=== PATIENT | female | born 1980 | race Asian ===

== ENCOUNTER → 2024-05-17 19:21 | Outpatient (REF) | payer BC, SELFPAY | LOC: WDC 19:21 | PROVIDERS: ATTENDING PHYSICIAN Nurse Practitioner Obstetrics & Gynecology; FAMILY PHYSICIAN Family Medicine | DX: Z12.31 Encounter for screening mammogram for malignant neoplasm of breast (principal) | CPT/HCPCS: 77063; 77067 ==